=== PATIENT | female | born 1965 | race Hispanic/Latino ===

== ENCOUNTER → 2018-04-28 | Outpatient (CLI) | payer OTHER ==
[~2018-04-28] MED LIST: ATOR10TA69 PO; BACL20TA PO; FAMO20TA8 PO; GADODIAMIDE 10 MMOL/20 ML ML IV ONE; GLUCOSAMINE PO; IBUP-2070 PO; LINA145C PO; LISI10TA7 PO; LORA10TA7 PO; MOME17N NASAL; OMEG1CAP31 PO; TYL3 PO
== END | disposition home or self-care (01) ==
LOC: RAH 09:53
PROVIDERS: ATTEND Internal Medicine Medical Oncology
DX: M54.12 Radiculopathy, cervical region (principal)
CPT/HCPCS: 72156; A9579

== ENCOUNTER → 2022-06-25 | Outpatient (CLI) | payer OTHER ==
[~2022-06-25] MED LIST changes: -GADODIAMIDE 10 MMOL/20 ML ML IV ONE; +LISI10TA24 PO; -LISI10TA7 PO
== END | disposition home or self-care (01) ==
LOC: RAH 09:15
PROVIDERS: ATTEND Neurological Surgery
DX: M54.16 Radiculopathy, lumbar region (principal)
CPT/HCPCS: 72148